=== PATIENT | female | born 1970 | race Caucasian/White ===

== ENCOUNTER 2017-04-11 07:49 | Inpatient (IN) ==
[2017-04-11] MEDS ORDERED: SODIUM CHLORIDE 0.9% 2,000 ML IV STA (08:19)
[2017-04-11] MEDS ORDERED: LOPERAMIDE 2 MG CAPSULE PO STA (08:19)
[2017-04-11] MEDS ORDERED: PANTOPRAZOLE 40 MG VIAL IV STA (08:19)
[2017-04-11] MEDS ORDERED: DICYCLOMINE 20 MG/2 ML AMP IM ONE (08:19)
[2017-04-11] MEDS ORDERED: METOCLOPRAMIDE 10 MG/2 ML VIAL IV STA (08:19)
[2017-04-11] MEDS ORDERED: metroNIDAZOLE INJ 500 MG in PREMIX 1 EACH IV STA (08:19)
[2017-04-11] MEDS ORDERED: ONDANSETRON ODT 4 MG TABLET PO STA (08:19)
--- NOTE | 2017-04-11 08:24 | Emergency Department Note ---
Arrival - Arrival Chief Complaint: Non-Specific Stated Complaint: disort,n/v,diafer pains,stomach colapd,weak ED Nursing Triage Note: Pt c/o nausea, vomiting, lightheaded, diarrhea, syncope , dark colored stool, weakness, unsteady gait, and PO intake x 3 wks. States she stopped her pain meds about 3 wks ago. Mode of Arrival: Wheelchair Limitations: No Limitations Source: Patient Time Seen by Provider: 04/11/17 08:19 - History of Present Illness HPI Narrative: This 46-year-old white female presents with 3 weeks of daily loose watery black bowel movements and paroxysms of nausea and vomiting not associated with chills or fever. The patient states that 3 weeks ago she came completely off narcotics after being treated for some 10 years on daily hydrocodone. She does not relate any chills, fever, heartburn, belching, indigestion, peptic ulcer disease, pancreatitis, gallbladder disease, or inflammatory bowel disease. She does have significant problems with depression, anxiety, agoraphobia, and chronic pain from fibromyalgia. Currently she appears in no acute distress and appears medically stable. Onset (ago): week(s) (Patient presents 3 weeks post onset of symptoms) Date of Last Menstrual Period: 2 wks ago Allergies/Adverse Reactions: Allergies Allergy/AdvReac Type Severity Reaction Status Date / Time Sulfa (Sulfonamide Allergy Mild RASH Verified 11/14/16 12:37 Antibiotics) Home Medications: Home Medications Medication Instructions Recorded Confirmed Type hydroCHLOROthiazide 25 mg PO DAILY #30 capsule 11/14/16 04/11/17 Rx [Hydrochlorothiazide] ALPRAZolam [Alprazolam] 1 mg PO Q8H PRN 04/11/17 04/11/17 History Amitriptyline [Elavil] 50 mg PO DAILY PRN 04/11/17 04/11/17 History Buspirone HCl 30 mg PO BID 04/11/17 04/11/17 History Escitalopram [Lexapro] 20 mg PO DAILY 04/11/17 04/11/17 History Mirtazapine [Mirtazapine] 15 mg PO DAILY 04/11/17 04/11/17 History buPROPion SR [Wellbutrin Sr] 150 mg PO BID 04/11/17 04/11/17 History Review of System - Review of System 12 point system: reviewed and no additional remarkable complaints except as stated - Review of System Constitutional: Present: as per HPI Gastrointestinal: Present: as per HPI Psychiatric: Present: as per HPI Medical,Surgical,& Family Hx - Medical History Cardio: History of: Hypertension Psychological: History of: Anxiety Disorders (Panic disorder) Rheumatology: History of;: Fibromyalgia Renal: No history of: Renal Failure, Renal Problems Gastrointestinal: No history of: Gastrointestinal Bleed, Liver Problems, GI Problems Musculoskeletal: History of: Degenerative Disk Disease - Social History Smoking Status: Current every day smoker Exam Physical Examination: GENERAL: Well developed, well nourished white female in no acute distress. HEENT: Normocephalic. No trauma. Moist mucous membranes. EOMI. PERRLA. ENT NML NECK: Supple. No adenopathy. CARDIAC: Regular. No murmurs. Heart rate 110 CHEST: Clear to auscultation. No respiratory distress. O2 sat 99% ABDOMEN: Soft. Mildly diffusely tender with hyperactive bowel sounds. EXTREMITIES: No trauma. Normal ROM. No pedal edema. SKIN: No diaphoresis. No rash. NEURO: Alert. Neuro intact. No focal deficits. Vital Signs: Vital Signs Temperature 97.5 F L 04/11/17 07:51 Pulse Rate 109 H 04/11/17 07:51 Respiratory Rate 18 04/11/17 07:51 Blood Pressure 152/99 04/11/17 07:51 O2 Sat by Pulse Oximetry 99 04/11/17 07:51 Course - Reevaluation(s) Reevaluation #1: Advised patient of her findings and need for hospitalization. However because of family demands she will leave [place] to return at some other point in time. She has been advised of the risks in doing so including . Results - Labs CBC & BMP: 04/11/17 08:45 04/11/17 08:45 Labs: I reviewed the laboratory noted the depressed hematocrit, and severely elevated lipase. - Diagnostic Findings Procedure: CT Abdomen and Pelvis: image reviewed by me, report reviewed by me ( Normal-appearing pancreas but evidence of colitis.) Disposition Clinical Impression: Colitis Disposition: Left Against Medical Advice Time of Disposition: 12:28
[2017-04-11] MEDS ORDERED: metroNIDAZOLE 500 MG/100 ML PREMIX IV ONE (09:00)
[2017-04-11 09:15] LABS: Basophils % 0.4 % (0.0-0.8); Eosinophils % 0.6 % (0.00-10.9); Hematocrit 32.2 VOL% (35.7-47.0); Hemoglobin 10.7 GM/DL (12.0-16.0); Immature Granulocytes % 0.6 %; Immature Granulocytes Absolute 0.03 #; Lymphocytes # 1.1 10*3/uL (1.4-4.0); Lymphocytes % 21.2 % (21.3-54.2); Mean Corpuscular HGB Conc 33.2 GM/DL (32-36); Mean Corpuscular Hemoglobin 29 PG (27-34); Mean Corpuscular Volume 86.8 FL (87-102); Mean Platelet Volume 10.3 FL (9.6-12.0); Monocytes # 0.3 10*3/uL (0.11-0.8); Neutrophils # 3.6 10*3/uL (1.4-7.4); Neutrophils % 72.2 % (38.7-73.9); Platelet Count 208 T/CUMM (130-400); Red Blood Count 3.71 MC/CUMM (3.8-5.5); Red Cell Distribution Width 24.4 % (9.3-17.3)
[2017-04-11] MEDS ORDERED: PANTOPRAZOLE 40 MG VIAL IV ONE (09:31)
[2017-04-11] MEDS ORDERED: LOPERAMIDE 2 MG CAPSULE ONE (09:31)
[2017-04-11] MEDS ORDERED: METOCLOPRAMIDE 10 MG/2 ML VIAL ONE (09:31)
[2017-04-11] MEDS ORDERED: DICYCLOMINE 20 MG TABLET ONE (09:31)
[2017-04-11 09:48] LABS: Anisocytosis 1+; Poikilocytosis 1+
[2017-04-11 09:51] LABS: Albumin 3.5 G/DL (3.4-5.0); Bilirubin,Total 0.6 MG/DL (0.2-1.0); Calcium 10.1 MG/DL (8.5-10.1); Potassium 4.3 MMOL/L (3.5-5.1); Total Protein 7.4 G/DL (6.4-8.3)
[2017-04-11] MEDS ORDERED: ONDANSETRON ODT 4 MG TABLET PO ONE (09:54)
--- NOTE | 2017-04-11 12:16 | CT Report ---
CT of the abdomen and pelvis with intravenous and oral contrast. Axial images were obtained with sagittal and coronal 2-D reconstructions. No previous study. 100 cc Omni 350. Indication: Pancreatitis. Pseudocyst. The heart is upper limits of normal in size. The lung bases are essentially clear. There is no pericardial or pleural effusion. The liver is enlarged with a length of 22 cm. There is severe fatty infiltration of the liver. No focal liver lesions are seen. There is no intrahepatic biliary ductal dilatation. There is no adrenal enlargement. There is no splenic enlargement. There are 2 accessory splenic nodules present. The pancreas is normal in size and appearance. No inflammatory changes are seen. No cyst formation is present. The pancreatic duct is not dilated. The kidneys are normal in size, location, and contour. No hydronephrosis. No focal lesion. No nephrolithiasis. The urinary bladder presents a normal appearance. There is mild calcific plaque present within a normal caliber abdominal aorta, extending into the iliac arteries. No free air or free fluid is identified. The loops of small intestine are not dilated. Contrast material reaches the distal small intestine but not the terminal ileum. The terminal ileum presents a normal appearance. The appendix is not discretely seen. Throughout the length of the colon, there is nondistention and collapse. There is suspected uniform wall thickening with edema throughout the length of the colon. No evidence of obstruction. No significant diverticular formation. The osseous structures are unremarkable. Impression: 1. Enlarged severely fatty liver. 2. Diffuse edematous wall thickening of the colon without surrounding inflammation, or evidence of diverticular formation. Infectious and inflammatory conditions should be considered. 3. No abnormality of the pancreas is seen by CT. The CT exam was performed using one or more of the following dose reduction techniques: Automated exposure control, adjustment of the mA and/or kV according to patient size, or use of iterative reconstruction technique. PROCEDURE INTERPRETED AT [facility] DEPARTMENT OF RADIOLOGY Final Report Signed by: Dr. Kelsie Purcell
--- NOTE | 2017-04-11 13:41 | Hospitalist History & Physical ---
<Elly Riley - Last Filed: 04/11/17 13:13> Assessment and Plan - Time spent with patient Time spent with patient: Greater than 30 minutes (1) Elevated lipase Status: Acute Assessment and plan: Admit 04/11/17 Start IV fluids NPO - advance as tolerated Occult stool Elevated Lipase -2015.0, elevated AST 147 - consult GI Start Cipro and Flagyl Further recommendations to follow per Dr Avendano Current Visit: Yes (2) Abdominal pain Status: Acute Current Visit: Yes (3) Nausea vomiting and diarrhea Status: Acute Current Visit: Yes History of Present Illness Chief complaint: abdominal pain, N/V/D History of present illness: Ms. Deleon is a 46 year old white female w/PMHx of psychiatric disorder ( anxiety, social agoraphobia, depression), HTN, fibromyalgia, degenerative disk disease, chronic pain presented to the ED for further evaluation of abdominal pain, cramping x3 weeks with associated nausea and vomiting every morning. Reports "jet black" loose stools x 6 months. She reports unable to eat any thing for over 3 weeks, has only been able to drink water. She reports recently stopping Percocet (3 weeks ago) but continues to take xanax. She reports 2 episodes of syncope and completely "passed out". She reports increased weakness and dizziness, feels like "brain is spinning". She denies fever, chills, chest pain, shortness of breath. IN ED: LABS: H&H 10.7 & 32.2. Electrolytes WNL. Glucose 107. Calculated Osmolality 270.0. AST 147. alkaline phosphatase 172. Lipase 2015.0 Abd/Pel CT: Enlarged severely fatty liver; Diffuse edematous wall thickening of the colon without surrounding inflammation, or evidence of diverticular formation. Infectious and inflammatory conditions should be considered, No abnormality of the pancreas is seen by CT. She reports living at home with her 13 year old son. She reports smoking 1 pack/ day, occasional alcohol use. Denies any drug use. She reports taking Flu vaccine. She denies any surgical history. She reports being adopted and unaware of family medical history. She is followed by a physician at [facility] for anxiety and phobias. PCP: currently does not have a primary Psych: [place] [facility] After discussion with Dr Otero in ED and Dr Avendano with [facility], it was agreed to admit for further evaluation. Home medications to be reviewed and reconciliation to follow. Home Medications Medication Instructions Recorded Confirmed Type hydroCHLOROthiazide 25 mg PO DAILY #30 capsule 11/14/16 04/11/17 Rx [Hydrochlorothiazide] ALPRAZolam [Alprazolam] 1 mg PO Q8H PRN 04/11/17 04/11/17 History Amitriptyline [Elavil] 50 mg PO DAILY PRN 04/11/17 04/11/17 History Buspirone HCl 30 mg PO BID 04/11/17 04/11/17 History Escitalopram [Lexapro] 20 mg PO DAILY 04/11/17 04/11/17 History Mirtazapine [Mirtazapine] 15 mg PO DAILY 04/11/17 04/11/17 History buPROPion SR [Wellbutrin Sr] 150 mg PO BID 04/11/17 04/11/17 History Allergies Allergy/AdvReac Type Severity Reaction Status Date / Time Sulfa (Sulfonamide Allergy Mild RASH Verified 11/14/16 12:37 Antibiotics) Medical,Surgical,& Family Hx - Medical History Cardio: History of: Hypertension Psychological: History of: Anxiety Disorders (Panic disorder), Psychiatric Problems (social phobia) Rheumatology: History of;: Fibromyalgia Renal: No history of: Renal Failure, Renal Problems Gastrointestinal: No history of: Gastrointestinal Bleed, Liver Problems, GI Problems Musculoskeletal: History of: Degenerative Disk Disease - Family History Family History: Reports;: Additional Family History (she states she was adopted and does not know any of family history) - Social History Smoking Status: Current every day smoker (1 pack per day) Frequency of Alcohol Use: Occasionally Type of Drug Use: None Marital Status: Lives With:: Children Functional capacity: independent ambulation 12 point system: reviewed and no additional remarkable complaints except as stated - Constitutional Constitutional: Present: weakness, other (decreased appetite). Absent: chills, fever(s), frequent falls - Cardiovascular Cardiovascular: Absent: chest pain at rest, chest pain with activity, dyspnea, dyspnea on exertion, edema - Respiratory Respiratory: Absent: dyspnea, dyspnea on exertion, wheezing - Gastrointestinal Gastrointestinal: Present: abdominal pain, cramping, loose stools ([id number] - "jet black"), nausea, vomiting (daily - every morning). Absent: coffee ground emesis, early satiety, jaundice - Neurological Neurological: Present: dizziness, syncope - Psychiatric Psychiatric: Present: anxiety (history ) Exam - Constitutional Vitals: Period Temp Pulse Resp BP Sys/Mccloud Pulse Ox Last 24 Hr 97.5 F 109 18 152/99 99 General appearance: normal weight, no acute distress - Head Head exam: Present: normal inspection, normocephalic - Eye Eye exam: Present: EOMI Pupils: Present: MIHIR - Neck Neck exam: Present: normal inspection. Absent: thyromegaly - Respiratory Respiratory exam: Present: clear to auscultation bilaterally. Absent: rhonchi, stridor, wheezes - Cardiovascular Cardiovascular exam: Present: regular rate and rhythm - GI/Abdominal GI/Abdominal exam: Present: normal bowel sounds, tenderness (throughtout - mild) , soft. Absent: guarding - Extremities Exam Extremities exam: Present: normal inspection, full ROM. Absent: edema - Neurological Exam Neurological exam: Present: alert, oriented X3, CN II-XII intact - Psychiatric Psychiatric exam: Present: normal affect, normal mood. Absent: agitated, anxious - Skin Skin exam: Present: normal color, warm, dry Results - Labs CBC & BMP: 04/11/17 08:45 04/11/17 08:45 Lab Results: I have reviewed the past 24 hour labs Labs: elevated AST 147 Elevated alkaline phosphatase 172 Glucose 107 Calculated osmolality 270.0 elevated Lipase 2015.0 - Diagnostic Findings Procedure: CT Abdomen and Pelvis: report reviewed by me (Enlarged severely fatty liver, diffuse edematous wall thickening of the colon without surrounding inflammation or evidence of diverticular formation, infectious and inflammatory condition should be considered, no abnormality of the pancreas is seen by CT) <Makayla Avendano - Last Filed: 04/11/17 16:34> Assessment and Plan (1) Colitis Status: Acute Assessment and plan: Unknown etiology. Infectious versus inflammatory. The patient has a normal white blood cell count and denies any fever. GI consult pending. Start clear liquid diet. Continue IV antibiotics. Stool studies pending. Further recommendations depend on her response to therapy. Current Visit: Yes History of Present Illness History of present illness: Ms. Deleon is a 46 year old female that is admitted to the hospitalist service for evaluation of diarrhea with abdominal pain and nausea and vomiting. Symptoms have been ongoing for approximately 6 months but have worsened over the last 3-4 weeks. She is admitted for further evaluation and GI consultation. Stool studies have been ordered and are pending. I have also added an ESR and CRP to evaluate for inflammatory markers. Consider infectious colitis versus inflammatory bowel disease. I have personally seen and examined this patient today. I agree with the below note as prepared by the advanced practice provider. I agree with the assessment and plan. Case discussed with Elly Riley OBSTETRICIAN GYNECOLOGIST. Exam - Constitutional Vitals: Period Temp Pulse Resp BP Sys/Mccloud Pulse Ox Last 24 Hr 97.5 F-98.1 F 86-118 18-22 123-165/81-119 96-100 Results - Labs CBC & BMP: 04/11/17 08:45 04/11/17 08:45 Lab Results: I have reviewed the past 24 hour labs
[2017-04-11] MEDS ORDERED: AMITRIPTYLINE 50 MG TABLET PO PRN (15:23)
[2017-04-11] MEDS ORDERED: MORPHINE 2 MG/1 ML SYRINGE IV PRN (15:23)
[2017-04-11] MEDS ORDERED: ACETAMINOPHEN 325 MG TABLET PO PRN (15:23)
[2017-04-11] MEDS: SODIUM CHLORIDE 0.9% 1,000 ML IV SCH (15:39)
[2017-04-11] MEDS: CIPROFLOXACIN INJ 400 MG in PREMIX 1 EACH IV SCH (15:43)
[2017-04-11] MEDS: ONDANSETRON 4 MG/2 ML VIAL IV PRN ×2 (15:45→23:50)
[2017-04-11 19:34] LABS: Apearance,Urine Slightly Hazy (Clear); Bacteria,Urine Occasional /HPF (Few); Bilirubin,Urine Negative (Negative); Blood, Urine Moderate mg/dL (Negative); Glucose,Urine (UA) Negative (Negative); Ketones,Urine 20 mg/dL (Negative); Nitrite,Urine Negative (Negative); Protein,Urine 30 MG/DL; RBC,Urine 11 /HPF (0-4); Squamous Epithelial Cell,Urine Few /HPF (0-10); Urine Color Yellow (Yellow); Urine Specific Gravity > 1.060 (1.001-1.035); Urine Urobilinogen < 2.0 EU/DL (0.2-1.0); WBC,Urine 5 /HPF (0-6)
[2017-04-11] MEDS ORDERED: NICOTINE 21 MG/24 HR PATCH TRANSDERM SCH (20:00)
[2017-04-11] MEDS: busPIRone 15 MG TABLET PO SCH (20:43)
[2017-04-11] MEDS: buPROPion SR 150 MG TABLET PO SCH (20:44)
[2017-04-11] MEDS: metroNIDAZOLE INJ 500 MG in PREMIX 1 EACH IV SCH (20:44)
[2017-04-11] MEDS: ALPRAZolam 0.5 MG TABLET PO PRN (20:44)
[2017-04-12] MEDS: CIPROFLOXACIN INJ 400 MG in PREMIX 1 EACH IV SCH ×2 (03:46→17:13)
[2017-04-12] MEDS: ONDANSETRON 4 MG/2 ML VIAL IV PRN (03:46)
[2017-04-12 05:31] LABS: Basophils % 0.4 % (0.0-0.8); Eosinophils # 0.1 10*3/uL (0.0-0.87); Eosinophils % 2.3 % (0.00-10.9); Hematocrit 27.2 VOL% (35.7-47.0); Hemoglobin 8.6 GM/DL (12.0-16.0); Immature Granulocytes % 1.5 %; Immature Granulocytes Absolute 0.04 #; Lymphocytes % 37.9 % (21.3-54.2); Mean Corpuscular HGB Conc 31.6 GM/DL (32-36); Mean Corpuscular Hemoglobin 29 PG (27-34); Mean Corpuscular Volume 90.4 FL (87-102); Mean Platelet Volume 9.8 FL (9.6-12.0); Monocytes # 0.2 10*3/uL (0.11-0.8); Monocytes % 7.7 % (1.7-12.7); Neutrophils # 1.3 10*3/uL (1.4-7.4); Neutrophils % 50.2 % (38.7-73.9); Red Blood Count 3.01 MC/CUMM (3.8-5.5); Red Cell Distribution Width 24.4 % (9.3-17.3); White Blood Count 2.6 T/CUMM (4-12)
[2017-04-12 06:00] LABS: Calcium 8.4 MG/DL (8.5-10.1); Magnesium 1.1 MG/DL (1.8-2.4); Osmolality,Calculated 280.1 MOS/KG (273-304); Risk Ratio 1.77; Total Protein 5.8 G/DL (6.4-8.3)
[2017-04-12 06:03] LABS: Platelet Count 155 T/CUMM (130-400)
[2017-04-12 06:31] LABS: Anisocytosis 2+
[2017-04-12] MEDS: ALPRAZolam 0.5 MG TABLET PO PRN (06:52)
[2017-04-12] MEDS ORDERED: MAGNESIUM SULF RIDER 4 GM in PREMIX 1 EACH IV ONE (07:45)
[2017-04-12] MEDS: SODIUM CHLORIDE 0.9% 1,000 ML IV SCH ×3 (08:36→17:13)
[2017-04-12] MEDS ORDERED: PANTOPRAZOLE 40 MG TABLET PO SCH (09:00)
[2017-04-12] MEDS ORDERED: MIRTAZAPINE 15 MG TABLET PO SCH (09:00)
[2017-04-12] MEDS ORDERED: ESCITALOPRAM 10 MG TABLET PO SCH (09:00)
[2017-04-12] MEDS ORDERED: hydroCHLOROthiazide 12.5 MG CAPSULE PO SCH (09:00)
[2017-04-12] MEDS: busPIRone 15 MG TABLET PO SCH (09:04)
[2017-04-12] MEDS: buPROPion SR 150 MG TABLET PO SCH (09:04)
--- NOTE | 2017-04-12 09:18 | Gastrointestinal Consult Note ---
Assessment and Plan (1) Abdominal pain Status: Acute Assessment and plan: 04/12-admitted with 3 week history of abdominal pain with nausea and vomiting and varying episodes of diarrhea/constipation. Recent discontinuation of Percocet 3 weeks ago after long-term history use for chronic pain. Stool studies noted as below. CT findings noted as below. No prior endoscopy. Elevated lipase levels with no correlated imaging findings. No significant upper quadrant pain or discomfort on palpation. No prior history of pancreatitis in the past. Patient is very anxious to return home at this time therefore can discussed further workup as outpatient when patient is feeling better. Plan an addendum to followed by Dr. Min. Current Visit: Yes History of Present Illness Chief complaint: Abdominal pain, nausea vomiting History of present illness: Ms. Deleon is a 46 year old female who was admitted to the hospital on yesterday with complaints of 2-3 week history of abdominal pain with nausea and vomiting. Patient has a prior history of psychiatric disorders including anxiety, social agoraphobia and depression, hypertension, fibromyalgia, DDD, and chronic pain issues. Until recently, patient was on Percocet however weaned herself off approximately 3 weeks ago. She is fairly anxious during the visit due to she is the sole supporter for her 13-year-old son who is currently at home alone due to her hospitalization. Patient states over the last 3 weeks she was in her usual state of health until she had a sudden onset of some abdominal pain which she describes to be rather diffuse with associated nausea and vomiting. She states her entire life she has never been able to vomit until this onset. She does deny any coffee-ground or hematemesis associated with this. She states she has been increasingly weak as well and has not been eating very well since onset. She reports that she has had some loose stools off and on over the last several months varying at times with episodes of constipation and at times they have been dark in color however she denies any hematochezia. She is unable to recall if she has had any associated weight loss with this. She denies any fever or chills. She does smoke a pack of cigarettes daily and is an occasional social drinker. Denies any other illicit drug use. Patient does not have insurance therefore she states she does not follow routinely with medical care. She is seen at [place] for her psychiatric disorders. She has never had prior endoscopy that she can recall. On admission , she had a CT of the abdomen with oral contrast which showed enlarged severely fatty liver and diffuse edematous wall thickening of the colon without inflammation or diverticular findings. She also had no changes noted on her pancreas however she did have elevated lipase level of 2014 on admission. Her lipase today is down to 1560. Admitting H&H was however following IV fluid initiation she is noted to have a drop at 8.6/27.2 in absence of any overt bleeding. She is having no complaints of upper abdominal pain. Triglycerides and the remainder of her lipid panel is unremarkable. Her CRP is elevated at 2.4. She is not diabetic. Stool studies thus far are negative with only trace blood seen in stool. Home Medications Medication Instructions Recorded Confirmed Type hydroCHLOROthiazide 25 mg PO DAILY #30 capsule 11/14/16 04/11/17 Rx [Hydrochlorothiazide] ALPRAZolam [Alprazolam] 1 mg PO Q8H PRN 04/11/17 04/11/17 History Amitriptyline [Elavil] 50 mg PO DAILY PRN 04/11/17 04/11/17 History Buspirone HCl 30 mg PO BID 04/11/17 04/11/17 History Escitalopram [Lexapro] 20 mg PO DAILY 04/11/17 04/11/17 History Mirtazapine [Mirtazapine] 15 mg PO DAILY 04/11/17 04/11/17 History buPROPion SR [Wellbutrin Sr] 150 mg PO BID 04/11/17 04/11/17 History Allergies Allergy/AdvReac Type Severity Reaction Status Date / Time Sulfa (Sulfonamide Allergy Mild RASH Verified 11/14/16 12:37 Antibiotics) Medical,Surgical,& Family Hx - Medical History Cardio: History of: Hypertension Psychological: History of: Anxiety Disorders (Panic disorder), Psychiatric Problems (social phobia) Rheumatology: History of;: Fibromyalgia Renal: No history of: Renal Failure, Renal Problems Gastrointestinal: No history of: Gastrointestinal Bleed, Liver Problems, GI Problems Musculoskeletal: History of: Degenerative Disk Disease - Family History Family History: Reports;: Additional Family History (she states she was adopted and does not know any of family history) - Social History Smoking Status: Current every day smoker Frequency of Alcohol Use: Occasionally Type of Drug Use: None 12 point system: reviewed and no additional remarkable complaints except as stated - Constitutional Constitutional: Present: as per HPI - EENT Eyes: Present: as per HPI Ears: Present: as per HPI Nose, mouth and throat: Present: as per HPI - Cardiovascular Cardiovascular: Present: as per HPI - Respiratory Respiratory: Present: as per HPI - Gastrointestinal Gastrointestinal: Present: as per HPI, abdominal pain, nausea, vomiting - Genitourinary Genitourinary: Present: as per HPI - Musculoskeletal Musculoskeletal: Present: as per HPI - Neurological Neurological: Present: as per HPI - Psychiatric Psychiatric: Present: as per HPI - Endocrine Endocrine: Present: as per HPI - Hematologic/Lymphatic Hematologic/Lymphatic: Present: as per HPI Exam - Constitutional Vitals: Period Temp Pulse Resp BP Sys/Mccloud Pulse Ox Last 24 Hr 97.4 F-98.1 F 66-102 18-22 123-146/81-102 94-100 General appearance: normal weight, no acute distress - Head Head exam: Present: normal inspection, normocephalic - Eye Eye exam: Present: other (Lids and conjunctivae are unremarkable). Absent: scleral icterus - ENT ENT exam: Present: normal exam, normal oropharynx - Neck Neck exam: Present: normal inspection - Respiratory Respiratory exam: Present: clear to auscultation bilaterally. Absent: rales, rhonchi, wheezes - Cardiovascular Cardiovascular exam: Present: regular rate and rhythm. Absent: diastolic murmur , JVD, systolic murmur - GI/Abdominal GI/Abdominal exam: Present: normal bowel sounds, soft. Absent: ascites, distended, mass, organomegaly, tenderness - Extremities Exam Extremities exam: Present: normal inspection, full ROM - Back Exam Back exam: Present: normal inspection - Neurological Exam Neurological exam: Present: alert, oriented X3 - Psychiatric Psychiatric exam: Present: normal affect, normal mood - Skin Skin exam: Present: normal color, warm, dry Results - Labs CBC & BMP: 04/12/17 05:01 04/12/17 05:01 Lab Results: I have reviewed the past 24 hour labs
[2017-04-12] MEDS: metroNIDAZOLE INJ 500 MG in PREMIX 1 EACH IV SCH (15:48)
--- NOTE | 2017-04-12 15:54 | Discharge Summary ---
Hospital Course - Hospital Course Hospital Course: Ms. Deleon is a 46 year old white female w/PMHx of psychiatric disorder ( anxiety, social agoraphobia, depression), HTN, fibromyalgia, degenerative disk disease, chronic pain presented to the ED for further evaluation of abdominal pain, cramping x3 weeks with associated nausea and vomiting every morning. Reports "jet black" loose stools x 6 months. She reports unable to eat any thing for over 3 weeks, has only been able to drink water. She reports recently stopping Percocet (3 weeks ago) but continues to take xanax. She reports 2 episodes of syncope and completely "passed out". She reports increased weakness and dizziness, feels like "brain is spinning". She denies fever, chills, chest pain, shortness of breath. IN ED: LABS: H&H 10.7 & 32.2. Electrolytes WNL. Glucose 107. Calculated Osmolality 270.0. AST 147. alkaline phosphatase 172. Lipase 2015.0 Abd/Pel CT: Enlarged severely fatty liver; Diffuse edematous wall thickening of the colon without surrounding inflammation, or evidence of diverticular formation. Infectious and inflammatory conditions should be considered, No abnormality of the pancreas is seen by CT. She reports living at home with her 13 year old son. She reports smoking 1 pack/ day, occasional alcohol use. Denies any drug use. She reports taking Flu vaccine. She denies any surgical history. She reports being adopted and unaware of family medical history. She is followed by a physician at [facility] for anxiety and phobias. PCP: currently does not have a primary Psych: [place] 46-year-old female admitted to the hospital with diarrhea nausea and vomiting. She was seen in consultation by gastroenterology. She was started on antibiotic therapy with Flagyl and ciprofloxacin. She improved during the course of the hospitalization and wanted to go home. She plans to follow-up with her primary care physician and phlebotomy lab assistant as an outpatient for possible endoscopy once the inflammatory changes have resolved. Ideally the patient would have been kept in the hospital for 2 3 more days until her symptoms resolved however she was adamant about going home. She has a young son at home and is his primary caregiver. She was treated with IV fluids as well as IV antibiotics. She had no fever or chills. She looked and felt better. She is being discharged home with prescription for ciprofloxacin and Flagyl to complete a week's course. I also prescribed Phenergan for nausea and Kountze for pain. Her home medications were reviewed and reconciled. No changes were made to her home medicines. She is a full code. She was given extensive dietary instructions on foods to avoid. - Time spent with patient Time with patient DS: Greater than 30 minutes (Total discharge time for this patient, including [id number] time, clinical documentation, medication reconciliation, and discharge planning was 40 minutes.) Diagnosis - Discharge Diagnosis (1) Colitis Status: Acute Discharge Plan - Discharge Data Disposition: Disch To Home/Self Care Condition at Discharge: Stable Discharge Diet: advance to your usual diet Activity: resume usual activities as tolerated Hygiene: no restrictions Weight Bearing at Discharge: full weight bearing Driving: no restrictions Contact your physician if you experience:: fever over 101, Bleeding, pain uncontrolled by pain medications - Discharge Medications New HYDROcodone/ACETAMIN 5-325 [Kountze 5-325] 1 tablet PO Q4H PRN #30 tablet PRN Reason: Pain Mild (1-3) metroNIDAZOLE TAB [Flagyl Cap/Tab] 250 mg PO TID #21 tablet Nicotine 21 mg/24 Hr Patch [Nicoderm CQ 21 mg/24 hr Patch] 1 patch TRANSDERM Q24H patch Promethazine Tab [Phenergan Tab] 25 mg PO Q4H PRN #20 tablet PRN Reason: Nausea Ciprofloxacin Tab [Cipro Tab] 500 mg PO BID #14 tablet Continue buPROPion SR [Wellbutrin Sr] 150 mg PO BID Buspirone HCl 30 mg PO BID Mirtazapine 15 mg PO DAILY ALPRAZolam [Alprazolam] 1 mg PO Q8H PRN PRN Reason: Anxiety Amitriptyline [Elavil] 50 mg PO DAILY PRN PRN Reason: Anxiety Escitalopram [Lexapro] 20 mg PO DAILY Discontinued hydroCHLOROthiazide [Hydrochlorothiazide] 25 mg PO DAILY #30 capsule - Follow Up or Referral - Forms/Instructions Instructions: Soft Diet (DC), Clear Liquid Diet (DC) Additional Discharge Instructions: Follow-up with primary care physician in 1 week. Follow-up with gastroenterology for outpatient endoscopy and 2-3 weeks. Exam - Constitutional Vitals: Period Temp Pulse Resp BP Sys/Mccloud Pulse Ox Last 24 Hr 97.4 F-98.1 F 66-91 18-20 139-160/91-102 94-98 Discharge Results Procedures and tests throughout hospitalization: Pending Orders 04/11/17 Urine Culture Routine 04/11/17 08:45 Blood Culture Stat 04/11/17 19:00 Occult Blood, Stool Routine Stool Culture/Campy/Yersinia Routine Labs on day of discharge: Labs from last 24 hours 04/12/17 04/12/17 04/12/17 05:01 05:01 05:01 WBC RBC Hgb Hct MCV MCH MCHC RDW Plt Count MPV Neut % (Auto) Lymph % (Auto) [place] % (Auto) Eos % (Auto) Baso % (Auto) Neut # (Auto) Lymph # (Auto) [place] # (Auto) Eos # (Auto) Baso # (Auto) Immature Gran % Nucleated RBC % Immature Gran # Nucleated RBCs # Immature Plt Fraction Anisocytosis ESR Westergren 25 H Sodium Potassium Chloride Carbon Dioxide Anion Gap BUN Creatinine GFR Calculation BUN/Creatinine Ratio Glucose Calculated Osmolality Calcium Magnesium Total Bilirubin AST ALT Alkaline Phosphatase C-Reactive Protein 2.42 H Total Protein Albumin Globulin Albumin/Globulin Ratio Triglycerides Cholesterol LDL Cholesterol VLDL Cholesterol HDL Cholesterol Heart Disease Risk Ratio Lipase 1560.0 H D Urine Color Urine Appearance Urine pH Ur Specific [employer] Urine Protein Urine Glucose (UA) Urine Ketones Urine Blood Urine Nitrate Urine Bilirubin Urine Urobilinogen Urine Leukocytes Urine RBC Urine WBC Ur Squamous Epith Cells Urine Bacteria Ur Culture Indicated? 04/12/17 04/12/17 04/11/17 05:01 05:01 19:00 WBC 2.6 L D RBC 3.01 L Hgb 8.6 L D Hct 27.2 L MCV 90.4 MCH 29 MCHC 31.6 L RDW 24.4 H Plt Count 155 D MPV 9.8 Neut % (Auto) 50.2 Lymph % (Auto) 37.9 [place] % (Auto) 7.7 Eos % (Auto) 2.3 Baso % (Auto) 0.4 Neut # (Auto) 1.3 L Lymph # (Auto) 1.0 L Mingo # (Auto) 0.2 Eos # (Auto) 0.1 Baso # (Auto) 0.0 Immature Gran % 1.5 Nucleated RBC % 0.0 Immature Gran # 0.04 Nucleated RBCs # 0.00 Immature Plt Fraction 0.0 Anisocytosis 2+ ESR Westergren Sodium 142 Potassium 4.0 Chloride 106 Carbon Dioxide 32 Anion Gap 8.0 BUN 7 Creatinine 0.80 GFR Calculation 100 BUN/Creatinine Ratio 8.00 Glucose 101 Calculated Osmolality 280.1 Calcium 8.4 L Magnesium 1.1 L Total Bilirubin 1.00 AST 87 H ALT 30 Alkaline Phosphatase 129 H C-Reactive Protein Total Protein 5.8 L Albumin 3.0 L Globulin 2.8 Albumin/Globulin Ratio 1.0 L Triglycerides 70 Cholesterol 138 LDL Cholesterol 41.0 VLDL Cholesterol 14.0 HDL Cholesterol 78 H Heart Disease Risk Ratio 1.77 Lipase Urine Color Yellow Urine Appearance Slightly hazy Urine pH 6.0 Ur Specific [employer] > 1.060 H Urine Protein 30 Urine Glucose (UA) Negative Urine Ketones 20 Urine Blood Moderate Urine Nitrate Negative Urine Bilirubin Negative Urine Urobilinogen < 2.0 H Urine Leukocytes Small H Urine RBC 11 Urine WBC 5 Ur Squamous Epith Cells Few Urine Bacteria Occasional Ur Culture Indicated? Results to follow Preliminary micro results at discharge 04/11/17 19:00 Stool Culture - Preliminary Stool No enteric pathogens at 12 hrs 04/11/17 Unknown Urine Culture - Preliminary Urine,Voided No Growth at 12 hours. 04/11/17 08:45 Blood Culture - Preliminary Blood No growth at 1 day 04/11/17 08:45 Blood Culture - Preliminary Blood No growth at 1 day DS: Provider Date of admission: 04/11/17 13:12 Primary care physician: Alicia Melgoza MD Attending physician on admission: Makayla Avendano MD Consults: 04/11/17 15:23 Consult to Case Mgmt/Social Srvs [CONS] Routine Reason for Case Mgmt/Social Srvs: Discharge Planning Consult to Physician [CONS] Routine Comment: Consulting Provider: Francis Min When should Consulting Provider be notified: Now Person Notified: Joan Date Notified: 04/11/17 Time Notified: 15:44 Consult Notification Comment: 04/11/17 15:35 Consult to Pastoral Services [CONS] Routine Comment: Pastoral Screen: Request Host And Hostess Visit Pastoral Screen Source of Request: Patient Discharging clinician: Makayla Avendano MD Expected date of discharge: 04/12/17
[2017-04-12 16:47] VITALS: BP 158/100
--- NOTE | 2017-04-15 15:15 | Physician Query Form ---
CLICK EDIT DOCUMENT TO SELECT QUERY ANSWER --> OK --> SIGN Latonya Jules RN Clinical Director Information Security W) [phone] (f) [phone] [email or web address]: Make your selection(s) from the choices in EACH section by typing an "x" and enter comments in the comment section. Please use your independent medical judgment in providing your response. This request does not imply that any particular answer is desired or expected. CLINICAL INDICATORS: (Providers should not edit this section) Pt. admitted with diarrhea, nausea and vomiting. Based on documentation of "acute colitis, Infectious versus inflammatory". Discharge summary states "She was started on antibiotic therapy with Flagyl and ciprofloxacin. She plans to follow-up with halftone operator for possible endoscopy once the inflammatory changes have resolved". Stool culture showed no enteric pathogens. If possible, please provide additional specificity regarding the type of colitis : ( ) Infectious, specify organism, if known: ( ) Ulcerative ( ) Ischemic ( ) acute ( ) chronic ( ) Allergic ( ) Spastic ( ) Eosinophilic ( ) Drug Induced, specify drug: ( ) Bacterial, specify organism, if known: ( ) Other cause, please specify: ( X) Clinically unable to determine COMMENTS: cultures were negative and inflammatory diagnosis would be based on biopsy- not done yet. PLEASE ALSO DOCUMENT RESPONSE IN PROGRESS NOTES AND/OR DISCHARGE SUMMARY Use of terms such as suspected, likely, or probable (associated with a specific diagnosis that is being evaluated, monitored, or treated as if it exists) are acceptable and can be restated in the discharge summary if not ruled out. MTDD
== END 2017-04-12 18:12 | disposition home or self-care (01) | DRG 392 ==
LOC: N.ED 07:49 → N.EDINP 13:12 → N.5E 14:34
PROVIDERS: ADMIT Family Medicine; ATTEND Family Medicine